=== PATIENT | male | born 1955 | race Caucasian/White ===

== ENCOUNTER 2024-12-04 10:17 | Outpatient (CLI) | payer MEDICARE, MEDICAID ==
--- NOTE | 2024-12-04 13:15 | RADIOLOGY REPORT ---
Indication: PLEURODYNIA Technique: CT axial images of the chest, abdomen and pelvis are obtained with intravenous contrast. Coronal and sagittal reformats were obtained. Radiation Dose Information: CTDI volume is 13.5 mGy. Dose-length product is 1415 mGy*cm Comparison: None FINDINGS: The trachea is patent. No pneumothorax. Bilateral atelectasis. Left upper lobe singular segment nodule measuring 6 mm. Coronary artery calcification disease. Aortic atherosclerotic calcifications. No supraclavicular or axillary lymphadenopathy. Adrenal glands, spleen and pancreas unremarkable in shape. Liver unremarkable in shape. No CT evidence for cholelithiasis. No hydronephrosis/ nephrolithiasis. Stomach is relatively nondistended. Small bowel loops are normal in caliber. Moderate volume stool in the colon. No secondary signs for appendicitis. Abdominal aortic atherosclerotic disease and tortuosity. Bladder partially distended. No free pelvic fluid. Prostate measures 5.8 cm transversely. No inguinal lymphadenopathy. [id number] bilateral sacroiliac degenerative joint disease. Severe s shaped curvature of the thoracolumbar spine including thoracic/upper lumbar dextroscoliosis. Moderate to advanced thoracolumbar degenerative disc disease. IMPRESSION: Severe s shaped curvature of the thoracolumbar spine including thoracic/ upper lumbar spine dextroscoliosis. 6 mm left upper lobe solid nodule. Recommend follow-up per Fleischner society criteria. Atherosclerotic, coronary artery calcification disease. Prostatomegaly. Correlate with PSA levels. Other findings as described
--- NOTE | 2024-12-04 13:51 | RADIOLOGY REPORT ---
Scoliosis spine Date: 12/04/2024 11:03 AM Indication: SEVERE SCOLIOSIS Comparison: None Technique: Standing frontal and lateral views of the thoracolumbar spine were obtained. Findings/Impression: There is approximately 40 degrees of levoscoliosis with the apex at T3-T4. There is approximately 38 degrees of levoscoliosis with the apex at L4. There is approximately 50 degrees of dextroscoliosis with the apex at T11.
== END 2024-12-04 23:59 | disposition home or self-care (01) ==
LOC: RAD 10:17
PROVIDERS: ATTEND Family Medicine
DX: N40.0 Benign prostatic hyperplasia without lower urinary tract symptoms (principal); M51.35 Other intervertebral disc degeneration, thoracolumbar region; M43.8X5 Other specified deforming dorsopathies, thoracolumbar region; M41.85 Other forms of scoliosis, thoracolumbar region; N32.89 Other specified disorders of bladder; R91.1 Solitary pulmonary nodule; I25.10 Atherosclerotic heart disease of native coronary artery without angina pectoris; J98.11 Atelectasis; I70.0 Atherosclerosis of aorta; M19.09 Primary osteoarthritis, other specified site; R07.81 Pleurodynia
CPT/HCPCS: 71250; 72084; 74176